=== PATIENT | female | born 1960 | race Two or more races ===

== ENCOUNTER 2023-10-14 18:26 | Emergency (ER) | payer MEDICARE, BC ==
[~2023-10-14] VITALS: Ht 160 cm; Wt 64.7 kg
[2023-10-14 23:50] VITALS: BP 142/84; PULSE 78; RESP 19; TEMP 98.3
[2023-10-15 00:06] VITALS: O2SAT 96
== END 2023-10-15 00:04 | disposition home or self-care (01) ==
LOC: ER 18:26
DX: S01.81XA Laceration without foreign body of other part of head, initial encounter (principal); I10 Essential (primary) hypertension; F17.210 Nicotine dependence, cigarettes, uncomplicated; W22.8XXA Striking against or struck by other objects, initial encounter; Y93.89 Activity, other specified; Y92.092 Bedroom in other non-institutional residence as the place of occurrence of the external cause; Y99.8 Other external cause status
CPT/HCPCS: 12013; 70450; 72125